=== PATIENT | male | born 1970 | race Caucasian/White ===

== ENCOUNTER 2018-02-13 17:04 | Observation (INO) ==
[2018-02-13] MEDS ORDERED: Ondansetron 4 MG/2 ML VIAL IVP ONE (17:15)
[2018-02-13] MEDS ORDERED: *HR* Propofol 200 MG/20 ML VIAL IVP ONE (17:48)
[2018-02-13] MEDS ORDERED: *HR* FentaNYL (PF) 100 MCG/2 ML VIAL ONE (17:48)
[2018-02-13] MEDS ORDERED: *HR* Succinylcholine 200 MG/10 ML VIAL IVP ONE (17:49)
[2018-02-13] MEDS ORDERED: Lidocaine -MPF 2% 2 ML VIAL ONE (17:50)
--- NOTE | 2018-02-13 17:52 | Anesthesia Evaluation PreOp ---
Date of Encounter: 02/13/18 Time of Encounter: 18:00 - Past History Planned Operation: EGD, Removal Food Bolus Cardiac History: Denies any Significant Hx Pulmonary History: Denies Any Significant HX STRATEGY PLANNING CONSULTANT History: Denies Any Significant HX Other Medical History: Diabetes Type II, Other (Bipolar, MRDD) Anesthesia History: No Prior Anesthetic Complications Alcohol Use: none Drug use: none Medications and Allergies Desvenlafaxine Succinate [Pristiq ER] 50 mg PO DAILY 04/25/17 [History] Fenofibrate Nanocrystallized [Tricor] 145 mg PO DAILY 04/25/17 [History] Insulin ASPART [Novolog Flexpen] 20 unit SQ TID 04/25/17 [History] Insulin Glargine,Hum.rec.anlog [Lantus Solostar] 60 unit SQ DAILY 04/25/17 [ History] Levothyroxine Sodium [Levoxyl] 25 mcg PO DAILY 04/25/17 [History] [place] Carbonate 300 mg PO TID 04/25/17 [History] Medroxyprogesterone Acetate [Depo-Provera] 150 mg IM QMONTH 04/25/17 [History] [place]-3 Acid Ethyl Esters [Lovaza] 2 gm PO BID 04/25/17 [History] Sertraline [Zoloft] 100 mg PO BID 04/25/17 [History] Trospium Chloride [Trospium Chloride] 20 mg PO HS 04/25/17 [History] clonazePAM [Klonopin] 0.5 mg PO TID 04/25/17 [History] Divalproex (12 HR) [Depakote (12 HR)] 1,000 mg PO HS 10/17/17 [History] Aripiprazole [Abilify] 15 mg PO QPM 11/20/17 [History] Aripiprazole [Abilify] 30 mg PO QAM 11/20/17 [History] Divalproex (12 HR) [Depakote (12 HR)] 500 mg PO QAM 11/20/17 [History] Metformin HCl [Glucophage] 1,000 mg PO BID 11/20/17 [History] Mupirocin [Bactroban Oint] 1 appl TP BID 11/20/17 [History] Nystatin Cream [Mycostatin Cream] 1 appl TP TID 11/20/17 [History] [place]-3/Dha/Epa/Fish Oil [Fish Oil 1,000 mg Softgel] 2 cap PO BID 11/20/17 [ History] traZODone [TraZODone] 50 mg PO HS 11/20/17 [History] 3 Allergy/AdvReac Type Severity Reaction Status Date / Time No Known Allergies Allergy Verified 06/25/17 12:05 - Meds/Allergy Pre-op Review Medications Reviewed: Yes Allergies Reviewed: Yes Beta Blockers on Current Med List: No Anesthesia Results - Labs O2 Sat Height 1.83 m Weight 72.575 kg O2 Sat by Pulse Oximetry 92 Vital Signs Temp Pulse Resp BP Pulse Ox 97.8 F 108 20 146/95 92 02/13/18 17:15 02/13/18 17:15 02/13/18 17:15 02/13/18 17:15 02/13/18 17:15 Laboratory Tests 10/30/17 11/14/17 17:32 11:10 Hgb 12.4 L D Hct 38.3 Plt Count 32 L D Sodium 136 Potassium 4.7 BUN 11 Creatinine 1.14 Anesthesia Exam Vital Signs/O2 Sat/Glucose, Most Current Temp Pulse Resp BP Pulse Ox 02/13/18 17:15 97.8 F 108 20 146/95 92 - HEENT Pupil (Motor): Pupils equal, EOMI Mallampati: II Teeth: Edentulous Oral Opening: Greater than 3 - STRATEGY PLANNING CONSULTANT LOC: Oriented STRATEGY PLANNING CONSULTANT Motor: Normal RUE, Normal LUE, Normal RLE, Normal LLE, Normal Face STRATEGY PLANNING CONSULTANT Sensory: Normal: RUE, LUE, RLE, LLE, Face - Cardiac Rhythm: Regular Murmur: None JVD: No Carotid Bruit: No - Pulmonary Breath Sounds: bilateral Clear Respiratory Effort: Symmetrical Anesthesia Assess/Plan ASA Score: 2, E Modified Gena Scale for Level of Consciousness: Cooperative, oriented, and tranquil Anesthetic Plan: General Monitoring Plan: Standard Monitors Recovery Plan: PACU (Discussed GA, agrees to proceed)
--- NOTE | 2018-02-13 17:53 | Emergency Department Note ---
Disposition Clinical Impression: Food impaction of esophagus Qualifiers: Encounter type: initial encounter Qualified Code(s): T18.128A - Food in esophagus causing other injury, initial encounter Disposition: Admitted As Inpatient Condition: Serious Time of Disposition: 18:03 General Adult HPI - General Stated complaint: Choking on Hotdog Time Seen by Provider: 02/13/18 17:10 Source: patient, EMS Mode of arrival: EMS Limitations: no limitations Nursing Notes Reviewed: Yes Vital Signs Reviewed: Yes - History of Present Illness HPI Narrative: Patient is a 47-year-old male that presents the emergency department with concern for possible food bolus. EMS stated that he was eating lunch this afternoon and was eating a hot dog and it felt like it got stuck in his throat. He states that he has a fullness in the anterior aspect of the neck just above the sternal notch. Patient states that he has been able to swallow his secretions. Patient denies any chest pain but says that he is not feeling well and feels like he is constantly spitting. Pain Scale: 5 - Related Data Home Medications Medication Instructions Recorded Confirmed Desvenlafaxine Succinate [Pristiq 50 mg PO DAILY 04/25/17 11/20/17 ER] Fenofibrate Nanocrystallized 145 mg PO DAILY 04/25/17 11/20/17 [Tricor] Insulin ASPART [Novolog Flexpen] 20 unit SQ TID 04/25/17 11/20/17 Insulin Glargine,Hum.rec.anlog 60 unit SQ DAILY 04/25/17 11/20/17 [Lantus Solostar] Levothyroxine Sodium [Levoxyl] 25 mcg PO DAILY 04/25/17 11/20/17 [place] Carbonate 300 mg PO TID 04/25/17 11/20/17 Medroxyprogesterone Acetate 150 mg IM QMONTH 04/25/17 11/20/17 [Depo-Provera] [place]-3 Acid Ethyl Esters [Lovaza] 2 gm PO BID 04/25/17 11/20/17 Sertraline [Zoloft] 100 mg PO BID 04/25/17 11/20/17 Trospium Chloride [Trospium 20 mg PO HS 04/25/17 11/20/17 Chloride] clonazePAM [Klonopin] 0.5 mg PO TID 04/25/17 11/20/17 Divalproex (12 HR) [Depakote (12 1,000 mg PO HS 10/17/17 11/20/17 HR)] Aripiprazole [Abilify] 15 mg PO QPM 11/20/17 11/20/17 Aripiprazole [Abilify] 30 mg PO QAM 11/20/17 11/20/17 Divalproex (12 HR) [Depakote (12 500 mg PO QAM 11/20/17 11/20/17 HR)] Metformin HCl [Glucophage] 1,000 mg PO BID 11/20/17 11/20/17 Mupirocin [Bactroban Oint] 1 appl TP BID 11/20/17 11/20/17 Nystatin Cream [Mycostatin Cream] 1 appl TP TID 11/20/17 11/20/17 [place]-3/Dha/Epa/Fish Oil [Fish Oil 2 cap PO BID 11/20/17 11/20/17 1,000 mg Softgel] traZODone [TraZODone] 50 mg PO HS 11/20/17 11/20/17 Allergies Allergy/AdvReac Type Severity Reaction Status Date / Time No Known Allergies Allergy Verified 06/25/17 12:05 All systems ED: reviewed and negative except as stated. Constitutional: Denies: fever Cardiovascular: Denies: chest pain Respiratory: Reports: cough, other ( increased secretions). Denies: dyspnea Gastrointestinal: Reports: abdominal pain. Denies: nausea, vomiting Past Medical History - Past Medical History Medical history: Reports: diabetes, GERD, hypertension, thyroid disease Surgical history: Reports: orthopedic, other, other Psychiatric history: Reports: anxiety, bipolar, depression, panic disorder, PTSD , schizophrenia, previous psychiatric hospitalization - Social History Smoking Status: Never smoker Smokeless Tobacco Status: No Alcohol use: Reports: none Drug use: Reports: none Physical Exam - General Limitations: no limitations General appearance: alert, anxious - Head Head exam: atraumatic, normocephalic - Eye Eye exam: Present: normal appearance, EOMI - ENT ENT exam: normal exam, normal oropharynx, mucous membranes moist, other (Unable to visualize any food bolus at this time.) - Neck Neck exam: Present: normal inspection, full ROM, trachea midline, other ( Patient appears to have increased secretions.) - Respiratory Respiratory exam: Present: normal lung sounds bilaterally. Absent: respiratory distress, wheezes - Cardiovascular Cardiovascular exam: Present: normal rhythm, tachycardia, normal heart sounds, + S1, +S2 - Abdominal Exam Abdominal exam: Present: soft, Non-Tender, normal bowel sounds - Neurological Exam Neurological exam: Present: alert, oriented X3 - Psychiatric Psychiatric exam: Present: normal affect, normal mood - Skin Skin exam: Present: warm, dry, intact Course Vital Signs Temperature 97.8 F 02/13/18 17:15 Pulse Rate 108 02/13/18 17:15 Respiratory Rate 20 02/13/18 17:15 Blood Pressure 146/95 02/13/18 17:15 O2 Sat by Pulse Oximetry 92 02/13/18 17:15 Temperature 99.1 F 02/13/18 19:14 Pulse Rate 98 02/13/18 19:14 Respiratory Rate 16 02/13/18 19:14 Blood Pressure 137/78 02/13/18 19:14 O2 Sat by Pulse Oximetry 100 02/13/18 19:14 Oxygen Delivery Oxygen Delivery Nasal Cannula Medical Decision Making - MDM Narrative Medical decision making narrative: Due the patient was sitting to the emergency Department likely food bolus and inability to swallow his own secretions Dr. Donnelly the on-call endoscopist was contacted shortly after the patient's arrival. Dr. Donnelly came to bedside at 1730 evaluate the patient and felt that the patient needs to be brought to the OR for endoscopy. This was an emergent procedure that needed to be performed. The consent form was signed as an emergent consent and the caregiver prior to the consent be informed was notified that this would need to be done and she was in agreement. The patient will be taken from the emergency department directly to the OR for removal of food bolus by Dr. Donnelly. Please see Dr. Donnelly' s note for endoscopy or surgical report and final disposition of the patient. Patient was discharged from the emergency department into the care of the endoscopy team and the OR staff. Attestation Statement - Attestation Attestation: I examined this patient and my medical decision-making was reviewed with the Resident Physician, Dr. Sandoval. I agree with the documented findings, disposition and treatment plan as described except to the extent set forth below. Patient is a 47-year-old white male with a history of developmental delay and bipolar disorder who is brought in by EMS for complaints of "feeling like something stuck in my throat". Patient was eating a hot dog this afternoon and feels like a piece of hot dog got stuck in his throat. EMS reports that bystanders there saw him coughing and choking and performed a Heimlich on him and he did cough up a few pieces of bread but still feels like there is something stuck in his throat and points to his sternal notch area. Patient is able to talk but is unable to swallow secretions. Due to his developmental delay its very hard to have him cooperate with spitting into a cup or coughing up the secretions. Secretions appear to be kind of pulling in the back of his throat. Patient is having no respiratory distress but does feel short of breath and room air sats were 92%. Patient has not had this happen to him in the past and is not had required any GI intervention. I agree with patient's physical exam findings as documented. Patient was very anxious. I personally evaluated the patient on arrival to the ED and we page Dr. Mcpherson immediately for endoscopy for foreign body removal. Dr. Mcpherson came to the emergency department right away and evaluated the patient and felt due to these pooling secretions that he would take him emergently to the endoscopy suite for foreign body removal. Anesthesia was down to see the patient, emergent procedure consent forms were signed and his caregiver was notified. Patient was trach indirectly to the OR from the ED and they will disposition the patient from the postop area.
--- NOTE | 2018-02-13 18:54 | General Surg History&Physical ---
Date of Encounter: 02/13/18 Time of Encounter: 17:30 Assessment and Plan (1) Airway compromise Current Visit: Yes Status: Acute The assessment and plan as outlined above was discussed with the patient and/or family members who expressed understanding and agreement. All questions were answered. The patient is deemed an emergency and taken directly to the operating room for intubation and esophageal disimpaction as well as evaluation for aspiration. (2) Food impaction of esophagus Current Visit: Yes Status: Acute The assessment and plan as outlined above was discussed with the patient and/or family members who expressed understanding and agreement. All questions were answered. The patient was deemed an emergency and taken directly to the operating room for intubation, evaluation of the airway, and upper endoscopy with food disimpaction Qualifiers: Encounter type: initial encounter Qualified Code(s): T18.128A - Food in esophagus causing other injury, initial encounter History of Present Illness Chief complaint: Foreign body esophagus HPI: Mr. Yang is a 47 year old male Who sustained a foreign body impaction of the esophagus. This affected his airway. At presentation to the emergency room his oxygen saturation was 80%. It was unclear where the level was of the food bolus but the patient was at risk for losing his airway. I deemed the clinical situation emergency and probably arrange to take patient to the operating room for intubation and upper endoscopy with disimpaction of food bolus. He would also have intraoperative bronchoscopy to rule out aspiration or airway foreign body. Emergency case taken directly to the operating room Past Med Surg Social Fam HX - Past Medical History Medical history: diabetes, GERD, hypertension, thyroid disease Psychiatric history: anxiety, bipolar, depression, panic disorder, PTSD, schizophrenia, previous psychiatric hospitalization - Past Surgical History Surgical History: orthopedic, other, other - Social History Smoking Status: Never smoker Smokeless Tobacco Status: No Alcohol use: none Drug use: none Medications and Allergies Desvenlafaxine Succinate [Pristiq ER] 50 mg PO DAILY 04/25/17 [History] Fenofibrate Nanocrystallized [Tricor] 145 mg PO DAILY 04/25/17 [History] Insulin ASPART [Novolog Flexpen] 20 unit SQ TID 04/25/17 [History] Insulin Glargine,Hum.rec.anlog [Lantus Solostar] 60 unit SQ DAILY 04/25/17 [ History] Levothyroxine Sodium [Levoxyl] 25 mcg PO DAILY 04/25/17 [History] [place] Carbonate 300 mg PO TID 04/25/17 [History] Medroxyprogesterone Acetate [Depo-Provera] 150 mg IM QMONTH 04/25/17 [History] [place]-3 Acid Ethyl Esters [Lovaza] 2 gm PO BID 04/25/17 [History] Sertraline [Zoloft] 100 mg PO BID 04/25/17 [History] Trospium Chloride [Trospium Chloride] 20 mg PO HS 04/25/17 [History] clonazePAM [Klonopin] 0.5 mg PO TID 04/25/17 [History] Divalproex (12 HR) [Depakote (12 HR)] 1,000 mg PO HS 10/17/17 [History] Aripiprazole [Abilify] 15 mg PO QPM 11/20/17 [History] Aripiprazole [Abilify] 30 mg PO QAM 11/20/17 [History] Divalproex (12 HR) [Depakote (12 HR)] 500 mg PO QAM 11/20/17 [History] Metformin HCl [Glucophage] 1,000 mg PO BID 11/20/17 [History] Mupirocin [Bactroban Oint] 1 appl TP BID 11/20/17 [History] Nystatin Cream [Mycostatin Cream] 1 appl TP TID 11/20/17 [History] [place]-3/Dha/Epa/Fish Oil [Fish Oil 1,000 mg Softgel] 2 cap PO BID 11/20/17 [ History] traZODone [TraZODone] 50 mg PO HS 11/20/17 [History] 3 Allergy/AdvReac Type Severity Reaction Status Date / Time No Known Allergies Allergy Verified 06/25/17 12:05 Review of Systems All systems PM: The remainder of the systems were reviewed and are negative General Surgery Exam Initial Vital Signs Temp Pulse Resp BP Pulse Ox 97.8 F 108 20 146/95 92 02/13/18 17:15 02/13/18 17:15 02/13/18 17:15 02/13/18 17:15 02/13/18 17:15 - General physical appearance other (The patient is short of breath and baking us to do something to save him) - Neck no masses, no bruits, trachea midline, no lymphadectomy, no venous distension - Respiratory normal expansion, normal respiratory effort, other (Rapid breathing with sonorous airway sounds) - Cardiovascular Cardiovascular exam: Present: RRR, no murmurs/rubs/gallops - Abdomen Abdomen general surgery: Present: bowel sounds present, soft, non tender - Neurologic Present: CN 2-12 grossly intact, normal coordination, normal sensation - Psychiatric Psychiatric general surgery: Present: other (The patient is fearful and agitated.) Results - Labs All other labs normal.
--- NOTE | 2018-02-13 19:22 | Anesthesia Evaluation Post Op ---
Date of Encounter: 02/13/18 Time of Encounter: 19:25 - Vital Signs Vital Signs: Vital Signs/O2 Sat/Glucose, Most Current Temp Pulse Resp BP Pulse Ox 02/13/18 19:14 99.1 F 98 16 137/78 100 02/13/18 19:04 98 16 125/85 98 02/13/18 18:54 101 16 124/85 100 02/13/18 18:44 97.7 F 108 16 134/87 96 02/13/18 18:05 97.8 F 108 20 146/95 92 02/13/18 17:15 97.8 F 108 20 146/95 92 - Lungs Lungs: Clear Ascult./Percussion - Airway Airway: Non-obstructed - Cardiovascular Regular Rate - Mental Status Mental Status: Alert & Oriented, Answers Appropriately - Pain Pain Scale: 0 - Nausea Vomiting Nausea Vomiting: Not Present - Hydration Hydration: Tolerates oral liquids - Discharge PostOp Status: Transfer Patient to floor
[2018-02-13] MEDS ORDERED: *HR* Dextrose 50 % in Water (Syg) 50 ML SYRINGE IVP PRN (19:28)
[2018-02-13] MEDS ORDERED: D5% in Water 1,000 ML IVC PRN (19:28)
[2018-02-13] MEDS ORDERED: *HR* OxyCODONE/APAP 5/325 TABLET PO PRN ×2 (19:28)
[2018-02-13] MEDS ORDERED: 0.9 % Sodium Chloride 1,000 ML IVC SCH (19:28)
[2018-02-13] MEDS ORDERED: Dextrose Gel 15 GM/37.5 ML TUBE PO PRN ×2 (19:28)
[2018-02-13] MEDS ORDERED: *HR* Metoprolol 5 MG/5 ML VIAL IVP PRN (19:28)
[2018-02-13] MEDS: clonazePAM 0.5 MG TABLET PO SCH (20:13)
[2018-02-13] MEDS: Lithium Carbonate 300 MG CAPSULE PO SCH (20:14)
[2018-02-13] MEDS: *HR* Metformin 500 MG TABLET PO SCH (20:26)
[2018-02-13] MEDS ORDERED: traZODone 50 MG TABLET PO SCH (21:00)
[2018-02-13] MEDS ORDERED: Divalproex (12 HR) 500 MG TABLET PO SCH (21:00)
--- NOTE | 2018-02-14 07:29 | Discharge Summary ---
<Abraham Metzger - Last Filed: 02/14/18 07:26> Date of Encounter: 02/14/18 Time of Encounter: 06:45 - Discharge Diagnosis (1) Food impaction of esophagus Priority: Primary Status: Acute Comments: Compressive compromise of upper airway; dislodged with EGD and treated with subsequent balloon dilatation. Qualifiers: Encounter type: initial encounter Qualified Code(s): T18.128A - Food in esophagus causing other injury, initial encounter (2) Airway compromise Priority: Primary Status: Acute Comments: Symptomatically improved upon resolution of primary cause. General Surgery Exam Initial Vital Signs Temp Pulse Resp BP Pulse Ox 97.8 F 108 20 146/95 92 02/13/18 17:15 02/13/18 17:15 02/13/18 17:15 02/13/18 17:15 02/13/18 17:15 VITAL SIGNS: Reviewed. See [facility] GENERAL: no acute distress, comfortably supine, answers questions appropriately HEENT: normocephalic, pupils equal, oropharynx pink moist, no audible strider CV: regular rate and rhythm, peripheral pulses symmetrical and 2+ RESPIRATORY: CTAB without wheezes, rales, or rhonchi; no strider heard ABD: soft, non-tender, no rebound/guarding/rigidity, no peritoneal signs EXTREMITY: grossly normal motor function, no pedal edema, peripheral pulses 2+ b /l NEUROLOGIC EXAM: AOx3, obeys commands, no speech deficits. PSYCHIATRIC: normal mood and affect SKIN: no gross lesions, rashes, or skin changes - Hospital Course Hospital course: Mr. Yang is a 47 year old male presented to the emergency department after getting large piece of food stuck in his throat at about the level of his sternal notch. Patient was in distress at initial contact worried that he would not be able to breathe adequately. Considered an emergent airway compromise, taken to the OR, intubated, and dis-impacted with EGD scope. Two stenotic portions of the esophagus were successfully treated with balloon dilatation, subsequently demonstrating continued patency. Morning after EGD, patient denies any difficulty with breathing. Patient has some soreness in his throat most likely due to the endotracheal tube. No other complaints at this time. Symptomatic return precautions reviewed with patient. Same return precautions as well as educational handouts provided to patients prior to discharge. Patient is discharged and good and baseline condition. No new medications or follow-up appointments necessary from surgical standpoint. - Time Spent with Patient Total time spent providing and/or coordinating discharge services: - Discharge Medications Home Medications: Desvenlafaxine Succinate [Pristiq ER] 50 mg PO DAILY 04/25/17 [History] Fenofibrate Nanocrystallized [Tricor] 145 mg PO DAILY 04/25/17 [History] Levothyroxine Sodium [Levoxyl] 25 mcg PO DAILY 04/25/17 [History] [place] Carbonate 300 mg PO TID 04/25/17 [History] Medroxyprogesterone Acetate [Depo-Provera] 150 mg IM QMONTH 04/25/17 [History] [place]-3 Acid Ethyl Esters [Lovaza] 2 gm PO BID 04/25/17 [History] Sertraline [Zoloft] 100 mg PO DAILY 04/25/17 [History] Trospium Chloride [Trospium Chloride] 20 mg PO HS 04/25/17 [History] Divalproex (12 HR) [Depakote (12 HR)] 1,000 mg PO HS 10/17/17 [History] Aripiprazole [Abilify] 15 mg PO QPM 11/20/17 [History] Aripiprazole [Abilify] 30 mg PO QAM 11/20/17 [History] Divalproex (12 HR) [Depakote (12 HR)] 500 mg PO QAM 11/20/17 [History] Metformin HCl [Glucophage] 1,000 mg PO BID 11/20/17 [History] Mupirocin [Bactroban Oint] 1 appl TP BID 11/20/17 [History] Nystatin Cream [Mycostatin Cream] 1 appl TP TID 11/20/17 [History] traZODone [TraZODone] 50 mg PO HS 11/20/17 [History] Insulin DETEMIR [Levemir Flextouch] 40 unit SQ QPM 02/13/18 [History] Loxapine Succinate [Loxapine] 50 mg PO BID 02/13/18 [History] cloNIDine HCl [CloNIDine HCl] 0.1 mg PO HS 02/13/18 [History] clonazePAM [Klonopin] 1 mg PO TID 02/13/18 [History] Allergies/Adverse Reactions: 3 Allergy/AdvReac Type Severity Reaction Status Date / Time No Known Allergies Allergy Verified 06/25/17 12:05 Date of admission: 02/13/18 18:31 Primary care physician: Stanton Lock MD Discharging clinician: Abraham Metzger Anticipated date of discharge: 02/14/18 - Patient Status Disposition: Home, Self-Care Condition: Good Overall status at discharge: patient is back to baseline - Discharge Instructions Instructions: Esophageal Foreign Body (GEN), Upper Gastrointestinal Endoscopy ( DC) Follow Up With: Stanton Lock MD [Primary Care Provider] - Additional Instructions: Please review all discharge educational handouts. You may return to your usual diet Caution is advised when eating; recommend more thoroughly chewing food prior to swallowing. Return to the emergency department if similar incidents occur. Call your doctor or return to the emergency department for further evaluation especially if you have any of the following symptoms: inability to swallow, associated drooling, regurgitation, intense abdominal pain, inability to take a deep breath, inability to pass gas, or inability to have bowel movements. Other return precautions outlined in your educational handouts. Call your PCP for other concerns if any arise. - Diet and Activity Activity: resume usual activities as tolerated Diet: advance to your usual diet <Byron Donnelly - Last Filed: 02/14/18 15:26> Date of Encounter: 02/14/18 - Discharge Diagnosis (1) Airway compromise Status: Acute (2) Food impaction of esophagus Status: Acute Qualifiers: Encounter type: initial encounter Qualified Code(s): T18.128A - Food in esophagus causing other injury, initial encounter General Surgery Exam Initial Vital Signs Temp Pulse Resp BP Pulse Ox 97.8 F 108 20 146/95 92 02/13/18 17:15 02/13/18 17:15 02/13/18 17:15 02/13/18 17:15 02/13/18 17:15 - Hospital Course Hospital course: Mr. Yang is a 47 year old male - Time Spent with Patient Total time spent providing and/or coordinating discharge services: Date of admission: 02/13/18 18:31 Primary care physician: Stanton Lock MD Labs on day of discharge: Labs from last 24 hours 02/14/18 07:47 POC Glucose 108 H - Attending Attestation I examined this patient and my medical decision-making was reviewed with the Resident Physician. I agree with the documented findings, disposition and treatment plan as described except to the extent set forth below. The patient is seen and evaluated on morning rounds with the resident. He is swallowing normally and ready for discharge. There is no sign of aspiration pneumonia. Byron Donnelly MD FACS
[2018-02-14] MEDS ORDERED: Insulin LISPRO 300 UNITS/3 ML VIAL SQ SCH (07:30)
[2018-02-14 07:51] VITALS: BP 126/79
[2018-02-14] MEDS: Lithium Carbonate 300 MG CAPSULE PO SCH (08:06)
[2018-02-14] MEDS: *HR* Metformin 500 MG TABLET PO SCH (08:06)
[2018-02-14] MEDS: clonazePAM 0.5 MG TABLET PO SCH (08:06)
[2018-02-14] MEDS ORDERED: Pantoprazole 40 MG VIAL IVP SCH (09:00)
[2018-02-14] MEDS ORDERED: ARIPiprazole 10 MG TABLET PO SCH ×2 (09:00→18:00)
[2018-02-14] MEDS ORDERED: Divalproex (12 HR) 500 MG TABLET PO SCH (09:00)
[2018-02-14] MEDS ORDERED: Venlafaxine XR (24 HR) 75 MG CAP.ER.24H PO SCH (09:00)
== END 2018-02-14 10:00 | disposition home or self-care (01) ==
LOC: EMEROO 17:04 → 3ANU 17:04 → EMEROO 18:24 → 3ANU 18:33
PROVIDERS: ADMIT Surgery; ATTEND Surgery
PROC: ENDOEFB (2018-02-13 17:45)

== ENCOUNTER 2018-05-11 11:41 | Inpatient (IN) ==
[2018-05-11 12:33] LABS: Bilirubin,Urine Negative (Negative); Blood,Urine Moderate (Negative); Clarity,Urine Turbid (Clear); Color,Urine Yellow (Yellow); Glucose,Urine (UA) >=1000 mg/dL (Normal); Ketones,Urine Negative (Negative); Leukocyte Esterase,Urine Large (Negative); Nitrite,Urine Positive (Negative); Protein,Urine 100 mg/dL (Neg-Trace); Specific Gravity,Urine 1.025 (1.010-1.025); Urobilinogen,Urine Normal (Normal)
[2018-05-11 12:35] LABS: Bacteria,Urine Few per hpf (None-Few); RBC,Urine 30-50 per hpf (0-3); Squamous Epithelial Cell,Urine Few per lpf (None-Few); WBC,Urine TNTC per hpf (0-3)
[2018-05-11] MEDS: 0.9 % Sodium Chloride 1,000 ML IVC SCH ×3 (12:37→14:35)
[2018-05-11 12:43] LABS: Basophils % 0.2 %; Eosinophils # 0.2 K/mcL (0.0-0.6); Eosinophils % 1.8 %; Hematocrit 32.1 % (37.5-50.1); Immature Granulocytes % 0.5 % (0-4); Lymphocytes # 2.1 K/mcL (0.6-4.6); Lymphocytes % 25.4 %; Mean Corpuscular Hemoglobin 34.2 pg (28.0-33.3); Mean Corpuscular Volume 103.5 fL (83.0-100.0); Mean Platelet Volume 10.1 fL (9.4-12.4); Monocytes # 0.5 K/mcL (0.0-1.3); Monocytes % 5.6 %; Neutrophils # 5.6 K/mcL (1.6-8.9); Platelet Count 228 K/mcL (140-400); Red Cell Distribution Width 14.5 % (11.5-14.5); Segmented Neutrophils % 66.5 %
[2018-05-11 12:48] LABS: Hemoglobin 10.6 g/dL (12.9-16.9); INR 1.5; Prothrombin Time 17.2 Seconds (9.4-12.1)
[2018-05-11] MEDS ORDERED: Cefepime HCl 2,000 MG in Water for inj. (sterile) 20 ML 20 ML IVP ONE (12:59)
[2018-05-11] MEDS ORDERED: Levofloxacin 750 MG/150 ML 750 MG/150 ML BAG IVPB ONE (12:59)
[2018-05-11 13:19] LABS: Alanine Aminotransferase 10 Units/L (7-52); Albumin 3.2 g/dL (3.5-5.7); Alkaline Phosphatase 50 Units/L (34-104); Aspartate Amino Transferase 23 Units/L (13-39); BUN/Creatinine Ratio 14 (6-26); Bilirubin,Direct 0.1 mg/dL (0.0-0.2); Bilirubin,Indirect 0.6 mg/dL (0.0-1.2); Bilirubin,Total 0.7 mg/dL (0.3-1.0); Blood Urea Nitrogen 11 mg/dL (6-20); Calcium 9.1 mg/dL (8.6-10.3); Carbon Dioxide 16 mEq/L (23-29); Chloride 108 mEq/L (98-107); Globulin 3.1 g/dL (2.4-3.5); Glucose 278 mg/dL (70-105); Osmolality,Calculated 283 (280-300); Phosphorous 2.8 mg/dL (2.7-4.5); Potassium 4.5 mEq/L (3.5-5.1); Sodium 132 mEq/L (136-145); Total Protein 6.3 g/dL (6.4-8.9); Troponin I < 0.03 ng/mL (< 0.04); eGFR For Non-African Americans > 60 (> 60)
[2018-05-11 13:43] LABS: ABG Base Excess -8 mEq/L (-2 to 3); ABG HCO3 16 mEq/L (21-27); ABG Oxygen Saturation 98 % (95-98); ABG PCO2 24 mmHg (35-45); ABG PH 7.42 pH Units (7.32-7.45); ABG PO2 97 mmHg (85-104); ABG TCO2 17 mEq/L (20-26)
--- NOTE | 2018-05-11 14:07 | Emergency Department Note ---
Disposition Clinical Impression: Sepsis Qualifiers: Sepsis type: sepsis due to unspecified organism Qualified Code(s): A41.9 - Sepsis, unspecified organism UTI (urinary tract infection) Qualifiers: Urinary tract infection type: acute cystitis Hematuria presence: without hematuria Qualified Code(s): N30.00 - Acute cystitis without hematuria Disposition: Admitted As Inpatient Condition: Fair Time of Disposition: 14:20 General Adult HPI - General Chief complaint: ED Shortness of Breath/Dyspnea Stated complaint: BARBARA Time Seen by Provider: 05/11/18 11:50 Source: patient, other Mode of arrival: EMS Limitations: physical limitation Nursing Notes Reviewed: Yes Vital Signs Reviewed: Yes - History of Present Illness HPI Narrative: Mr. Yang is a 47 year old male with history of UTI, schizophrenia, diabetes DM , HTN, and seizure disorder, MRDD and lives lives in his home with the assistance of a GRADES 1 THRU 5 TEACHER. Home health a reported subjective fevers and shortness of breath. Apparently patient's Esteves catheter tubing began to have white sediment in the past 2 days. He also has a left medial heel ulcer that has been caring for. Patient verbalizes no abdominal pain or discomfort and no complaints with Esteves catheter. GRADES 1 THRU 5 TEACHER concerned for aspiration as he has trouble swallowing. Pain Scale: 0 - Related Data Home Medications Medication Instructions Recorded Confirmed Desvenlafaxine Succinate [Pristiq] 50 mg PO DAILY 03/30/18 05/11/18 Fenofibrate Nanocrystallized 145 mg PO DAILY 03/30/18 05/11/18 [Tricor] Insulin DETEMIR [Levemir] 20 units SQ HS 03/30/18 05/11/18 Levothyroxine [Synthroid] 25 mcg PO DAILY 03/30/18 05/11/18 [place] Carbonate 300 mg PO TID 03/30/18 05/11/18 Loxapine Succinate [Loxapine] 50 mg PO BID 03/30/18 05/11/18 Medroxyprogesterone Acetate 201 mg IM Q4W 03/30/18 05/11/18 [Depo-Provera] Metformin HCl [Glucophage] 1,000 mg PO BID 03/30/18 05/11/18 Sertraline [Zoloft] 100 mg PO DAILY 03/30/18 05/11/18 Trospium Chloride 20 mg PO DAILY 03/30/18 05/11/18 cloNIDine HCl [CloNIDine HCl] 0.1 mg PO HS 03/30/18 05/11/18 clonazePAM [Klonopin] 1 mg PO TID 03/30/18 05/11/18 Divalproex Sodium [Depakote 250 mg PO BID 05/11/18 05/11/18 Sprinkle] Insulin LISPRO [Humalog Kwikpen 0 unit SQ TID PRN 05/11/18 05/11/18 U-100] Polyethylene Glycol 3350 [MiraLAX 1 scoop PO DAILY 05/11/18 05/11/18 Powder Bulk 17.9 Oz] Allergies Allergy/AdvReac Type Severity Reaction Status Date / Time No Known Allergies Allergy Verified 05/11/18 11:49 Constitutional: Reports: fever, weakness, weight change (decreased 35 pounds in the ). Denies: chills Cardiovascular: Denies: chest pain, palpitations Respiratory: Reports: dyspnea. Denies: wheezes Gastrointestinal: Denies: abdominal pain, nausea, vomiting, diarrhea, hematemesis, melena, hematochezia Genitourinary: Reports: other (change in urine color in esteves) Past Medical History - Past Medical History Medical history: Reports: diabetes, GERD, hypertension, seizures, thyroid disease, other Surgical history: Reports: orthopedic, other, other Psychiatric history: Reports: anxiety, bipolar, depression, panic disorder, PTSD , schizophrenia, previous psychiatric hospitalization - Social History Smoking Status: Never smoker Smokeless Tobacco Status: No Alcohol use: Reports: none Drug use: Reports: none Physical Exam - General Limitations: altered mental status General appearance: alert, lethargic, cachectic - Head Head exam: atraumatic, normocephalic, normal inspection - Eye Eye exam: Present: normal appearance, PERRL, EOMI. Absent: nystagmus - ENT ENT exam: normal exam, normal oropharynx, mucous membranes dry (and pale) - Neck Neck exam: Present: normal inspection, full ROM, trachea midline - Chest Chest inspection: Present: normal inspection, symmetric chest wall rise - Respiratory Respiratory exam: Present: normal lung sounds bilaterally - Cardiovascular Cardiovascular exam: Present: regular rate, normal rhythm, normal heart sounds - Abdominal Exam Abdominal exam: Present: soft, tenderness. Absent: distention, guarding, rebound, rigidity Abdominal tenderness: Present: diffuse - Rectal Exam Human Resources Trainee present during exam: Yes (Pt TILE AND MARBLE INSTALLER) Rectal exam: Present: normal inspection, normal rectal tone, hemorrhoids ( external, non-bleeding, non-erythemetous), normal prostate. Absent: mass, tenderness - Extremities Exam Extremities exam: Present: normal capillary refill. Absent: pedal edema - Expanded Lower Extremity Exam Foot/toe exam: Present: other (ulcer on medial left heel that is non- erythemetous, no purulent drainage or bleeding.) Neurovascular/Tendon exam: Absent: motor deficit, sensory deficit, tendon deficit - Neurological Exam Neurological exam: Present: alert, CN II-XII intact - Expanded Neurological Exam Patient oriented to: Present: person, place. Absent: time Speech: Present: fluid speech Coma Scale Eye Opening: Spontaneous Coma Scale Motor Response: Obeys Commands Coma Scale Verbal Response: Confused Coma Scale Total: 14 - Psychiatric Psychiatric exam: Present: flat affect - Skin Skin exam: Present: warm, dry, intact, pallor Course Course Narrative: Mr. Yang is a 47 year old male with history of UTI, schizophrenia, diabetes DM , HTN, and seizure disorder, MRDD and lives lives in his home with the assistance of a GRADES 1 THRU 5 TEACHER. Home health a reported subjective fevers and shortness of breath. Apparently patient's Esteves catheter tubing began to have white sediment in the past 2 days. He also has a left medial heel ulcer that has been caring for. Patient verbalizes no abdominal pain or discomfort and no complaints with Esteves catheter. GRADES 1 THRU 5 TEACHER concerned for aspiration as he has trouble swallowing. On exam pt is drowsy, lethargic, mildly confused with cloudy urine with white sediment in esteves. Pt is pale. Concern for sepsis, will fluid bolus and initiate sepsis workup, concern for urosepsis. - Reevaluation(s) Reevaluation #1: Pt doing well after fluid bolus. Discussed admission with pt, rectal exam performed and hemocult sent to lab. Pt stable for admission. Time: 14:00 - Consultations Consultation #1: Discussed the case with Dr. Reddy with the hospitalist service who has accepted the pt for admission. He would like vanc started since he has grown MRSA in the past, order placed. Time: 14:17 Vital Signs Temperature 97.4 F L 05/11/18 11:50 Pulse Rate 107 05/11/18 11:50 Respiratory Rate 20 05/11/18 11:50 Blood Pressure 113/80 05/11/18 11:50 O2 Sat by Pulse Oximetry 98 05/11/18 11:50 Temperature 98.3 F 05/11/18 19:27 Pulse Rate 80 05/11/18 19:27 Respiratory Rate 15 05/11/18 19:27 Blood Pressure 149/87 05/11/18 16:07 O2 Sat by Pulse Oximetry 99 05/11/18 19:27 Oxygen Delivery Oxygen Delivery Room Air Medical Decision Making - MDM Narrative Medical decision making narrative: Pt presents with worsening lethargy, confusion, urine changes. Pt appears lethargic, drowsy, pale. Labs show decreased hgb, UTI. Will admit for IV abx, concern for urosepsis. - Medical Records Medical records reviewed: Yes I reviewed the patient's medical records. - Lab Data Lab results reviewed: Yes I reviewed the patient's lab results. Result diagrams: 05/11/18 12:11 05/11/18 12:11 Lab Results 05/11/18 05/11/18 05/11/18 Range/Units 12:07 12:11 12:11 WBC 8.4 (4.3-11.1) K/mcL RBC 3.10 L (4.19-5.50) M/mcL Hgb 10.6 L D (12.9-16.9) g/dL Hct 32.1 L (37.5-50.1) % MCV 103.5 H (83.0-100.0) fL MCH 34.2 H (28.0-33.3) pg MCHC 33.0 (31.6-35.5) g/dL RDW 14.5 (11.5-14.5) % Plt Count 228 (140-400) K/mcL MPV 10.1 (9.4-12.4) fL Immature Gran % 0.5 (0-4) % Seg Neutrophils % 66.5 % Lymphocytes % 25.4 % Monocytes % 5.6 % Eosinophils % 1.8 % Basophils % 0.2 % Neutrophils # 5.6 (1.6-8.9) K/mcL Lymphocytes # 2.1 (0.6-4.6) K/mcL Monocytes # 0.5 (0.0-1.3) K/mcL Eosinophils # 0.2 (0.0-0.6) K/mcL Basophils # 0.0 (0.0-0.2) K/mcL PT 17.2 H (9.4-12.1) Seconds INR 1.5 APTT 32.0 (26.0-36.0) Seconds Sample Site ABG pH (7.32-7.45) pH Units ABG pCO2 (35-45) mmHg ABG pO2 (85-104) mmHg ABG HCO3 (21-27) mEq/L ABG Total CO2 (20-26) mEq/L ABG O2 Saturation (95-98) % ABG Base Excess (-2 to 3) mEq/L O2 Delivery Device Inspired O2 (1-15=lpm [id number]=%) Sodium (136-145) mEq/L Potassium (3.5-5.1) mEq/L Chloride (98-107) mEq/L Carbon Dioxide (23-29) mEq/L BUN (6-20) mg/dL Creatinine (0.70-1.30) mg/dL Est GFR ( Amer) (> 60) Est GFR (Non-Af Amer) (> 60) BUN/Creatinine Ratio (6-26) Glucose (70-105) mg/dL Calculated Osmolality (280-300) Lactic Acid (0.5-2.2) mmol/L Calcium (8.6-10.3) mg/dL Phosphorus (2.7-4.5) mg/dL Magnesium (1.6-2.6) mg/dL Total Bilirubin (0.3-1.0) mg/dL Direct Bilirubin (0.0-0.2) mg/dL Indirect Bilirubin (0.0-1.2) mg/dL AST (13-39) Units/L ALT (7-52) Units/L Alkaline Phosphatase (34-104) Units/L Troponin I (< 0.04) ng/mL Serum Total Protein (6.4-8.9) g/dL Albumin (3.5-5.7) g/dL Globulin (2.4-3.5) g/dL Albumin/Globulin Ratio (1.1-2.2) Urine Color Yellow (Yellow) Urine Clarity Turbid A (Clear) Urine pH 6.0 (5.0-8.0) pH Units Ur Specific [place] 1.025 (1.010-1.025) Urine Protein 100 H (Neg-Trace) mg/dL Urine Glucose (UA) >=1000 H (Normal) mg/dL Urine Ketones Negative (Negative) mg/dL Urine Blood Moderate H (Negative) Urine Nitrite Positive A (Negative) Urine Bilirubin Negative (Negative) Urine Urobilinogen Normal (Normal) mg/dL Ur Leukocyte Esterase Large H (Negative) Urine Microscopic RBC 30-50 H (0-3) per hpf Urine Microscopic WBC TNTC H (0-3) per hpf Ur Squamous Epith Cells Few (None-Few) per lpf Urine Bacteria Few (None-Few) per hpf Ur Culture Indicated? YES A (NO) 05/11/18 05/11/18 05/11/18 Range/Units 12:11 12:11 13:38 WBC (4.3-11.1) K/mcL RBC (4.19-5.50) M/mcL Hgb (12.9-16.9) g/dL Hct (37.5-50.1) % MCV (83.0-100.0) fL MCH (28.0-33.3) pg MCHC (31.6-35.5) g/dL RDW (11.5-14.5) % Plt Count (140-400) K/mcL MPV (9.4-12.4) fL Immature Gran % (0-4) % Seg Neutrophils % % Lymphocytes % % Monocytes % % Eosinophils % % Basophils % % Neutrophils # (1.6-8.9) K/mcL Lymphocytes # (0.6-4.6) K/mcL Monocytes # (0.0-1.3) K/mcL Eosinophils # (0.0-0.6) K/mcL Basophils # (0.0-0.2) K/mcL PT (9.4-12.1) Seconds INR APTT (26.0-36.0) Seconds Sample Site L Radial ABG pH 7.42 (7.32-7.45) pH Units ABG pCO2 24 L (35-45) mmHg ABG pO2 97 (85-104) mmHg ABG HCO3 16 L (21-27) mEq/L ABG Total CO2 17 L (20-26) mEq/L ABG O2 Saturation 98 (95-98) % ABG Base Excess -8 L (-2 to 3) mEq/L O2 Delivery Device Room Air Inspired O2 21.0 (1-15=lpm [id number]=%) Sodium 132 L (136-145) mEq/L Potassium 4.5 (3.5-5.1) mEq/L Chloride 108 H (98-107) mEq/L Carbon Dioxide 16 L (23-29) mEq/L BUN 11 (6-20) mg/dL Creatinine 0.78 (0.70-1.30) mg/dL Est GFR ( Amer) > 60 (> 60) Est GFR (Non-Af Amer) > 60 (> 60) BUN/Creatinine Ratio 14 (6-26) Glucose 278 H (70-105) mg/dL Calculated Osmolality 283 (280-300) Lactic Acid 2.6 H (0.5-2.2) mmol/L Calcium 9.1 (8.6-10.3) mg/dL Phosphorus 2.8 (2.7-4.5) mg/dL Magnesium 2.0 (1.6-2.6) mg/dL Total Bilirubin 0.7 (0.3-1.0) mg/dL Direct Bilirubin 0.1 (0.0-0.2) mg/dL Indirect Bilirubin 0.6 (0.0-1.2) mg/dL AST 23 (13-39) Units/L ALT 10 (7-52) Units/L Alkaline Phosphatase 50 (34-104) Units/L Troponin I < 0.03 (< 0.04) ng/mL Serum Total Protein 6.3 L (6.4-8.9) g/dL Albumin 3.2 L (3.5-5.7) g/dL Globulin 3.1 (2.4-3.5) g/dL Albumin/Globulin Ratio 1.0 L (1.1-2.2) Urine Color (Yellow) Urine Clarity (Clear) Urine pH (5.0-8.0) pH Units Ur Specific [place] (1.010-1.025) Urine Protein (Neg-Trace) mg/dL Urine Glucose (UA) (Normal) mg/dL Urine Ketones (Negative) mg/dL Urine Blood (Negative) Urine Nitrite (Negative) Urine Bilirubin (Negative) Urine Urobilinogen (Normal) mg/dL Ur Leukocyte Esterase (Negative) Urine Microscopic RBC (0-3) per hpf Urine Microscopic WBC (0-3) per hpf Ur Squamous Epith Cells (None-Few) per lpf Urine Bacteria (None-Few) per hpf Ur Culture Indicated? (NO) - Radiology Data Radiology results reviewed: Yes I reviewed the patient's radiology results. Chest X-Ray 05/11/18 12:19 IMPRESSION: Streaky opacity in the left lung base with elevation left hemidiaphragm, unchanged. D/ / Cecelia Prater MD / Cecelia Prater MD Interpreting Provider: Cecelia Prater MD Critical Care Time Critical Care Time: Yes Total Critical Care Time: 30 Attestation: Critical care time 30 minutes managing patient's sepsis Attestation Statement - Attestation Attestation: Patient was seen with resident physician. I reviewed the history, physical, assessment and plan, and agree with the findings. I also personally evaluated this patient and had [id number] time with this patient. 47-year-old male presents emergency Department with decreased mental functioning , increasing weight loss decreased by mouth and other indicators that he was failing to perform appropriate daily activities. Patient is MR and has an indwelling Esteves catheter. Caregiver states that she states thinks he seems more short of breath as well. There is some concern for aspiration pneumonia. White sediment can be seen in the urine bag. Unclear on fevers or chills at this point. Also unclear and shortness of breath or chest pain. Review systems as above remainder reviewed to the best of our ability. ED course initial vital signs patient was minimally hypotensive this responded well to IV fluids. He was afebrile. ENT is unremarkable. Heart regular rhythm and rate. Lungs were clear. Abdomen is soft nontender. Extremities were unremarkable. Neurologically he is alert follows all commands moves all extremities. Skin no obvious rashes. Psych occult to evaluate. ED course workup essentially revealed urosepsis. His urine was a clear source of potential infection. His x-ray the chest was largely unremarkable. White blood cell count was normal. Patient was started on aggressive IV antibiotic therapy. He also responded well to IV hydration. I think a lot of his hypotension and symptoms of mental decline related to the fact that he has not been eating or drinking. There is really no indication for head CT scan as he easily answered questions that we asked moved all extremities. Patient actually continually improved throughout his stay in the emergency department especially with the IV hydration. We discussed the case and the hospitalist service agreed to accept the patient for admission to the hospital. Critical care time for this patient was 30 minutes. Agree with resident physician assessment and plan.
[2018-05-11] MEDS ORDERED: Naloxone 0.4 MG/ML INJ IVP PRN (14:54)
[2018-05-11] MEDS ORDERED: D5% in Water 1,000 ML IVC PRN (15:04)
[2018-05-11] MEDS ORDERED: *HR* Dextrose 50 % in Water (Syg) 50 ML SYRINGE IVP PRN (15:04)
[2018-05-11] MEDS ORDERED: Dextrose Gel 15 GM/37.5 ML TUBE PO PRN ×2 (15:04)
--- NOTE | 2018-05-11 15:14 | Internal Med History&Physical ---
Date of Encounter: 05/11/18 Time of Encounter: 15:13 Internal Medicine - H&P: HPI Chief complaint: SOB and fever Admitted From: Home (With home health aide) Plans for Post Hospital Care: Home History of present illness: Mr. Yang is a 47 year old male with history of UTI, schizophrenia, diabetes DM , HTN, and seizure disorder. The patient has history of cognitive deficits and lives in his home with the assistance of a MAINSPRING STRIP INSPECTOR. MAINSPRING STRIP INSPECTOR supplied some medical and social information. Home health a reported subjective fevers and shortness of breath. Apparently patient's Esteves catheter tubing began to have white sediment in the past 2 days. Patient verbalizes no abdominal pain or discomfort and no complaints with Esteves catheter. Patient with recent UTIs on 04/18/2018 which cultured MRSA, 03/30/2018 culture Klebsiella pneumoniae and 05/2018 with Enterococcus faecalis. UA received in the ED which showed moderate blood, positive for nitrites, large leukocyte esterase, WBCs TNTC, and RBCs 30-50. Patient was started on cefepime, Levaquin, and vancomycin due to last urine culture of MRSA. Patient also had recent urine cultures of klebsiella pneumonia and enteroccocus faecalis. Apparently patient was short of breath on arrival, O2 saturation was 100% on room air. Lactic acid is 2.6, serum white blood cell count is 8.4. Patient has hx of seizure precautions and will have seizure precautions. The patient is afebrile. Patient likely has SIRS as a result of his UTI. IV fluid boluses given in the ED, kidney function stable, creat is 0.78, bun is 11. NA is 132. Will give 1 additional bag of IVF @ 75 ml/hr. I have discussed the case with Dr. Reddy. Past Med Surg Social Fam HX - Past Medical History Medical history: diabetes, GERD, hypertension, seizures, thyroid disease, other Additional medical history: scoliosis, MRDD, type II diabetic, hypothyroidism Psychiatric history: anxiety, bipolar, depression, panic disorder, PTSD, schizophrenia, previous psychiatric hospitalization - Past Surgical History Surgical History: orthopedic, other, other Additional surgical history: PE TUBES. "dilation of esophagus" - Social History Smoking Status: Never smoker Smokeless Tobacco Status: No Alcohol use: none Drug use: none Internal Medicine - H&P: Meds Desvenlafaxine Succinate [Pristiq] 50 mg PO DAILY 03/30/18 [History] Fenofibrate Nanocrystallized [Tricor] 145 mg PO DAILY 03/30/18 [History] Insulin DETEMIR [Levemir] 20 units SQ HS 03/30/18 [History] Levothyroxine [Synthroid] 25 mcg PO DAILY 03/30/18 [History] [place] Carbonate 300 mg PO TID 03/30/18 [History] Loxapine Succinate [Loxapine] 50 mg PO BID 03/30/18 [History] Medroxyprogesterone Acetate [Depo-Provera] 201 mg IM Q4W 03/30/18 [History] Metformin HCl [Glucophage] 1,000 mg PO BID 03/30/18 [History] Sertraline [Zoloft] 100 mg PO DAILY 03/30/18 [History] Trospium Chloride 20 mg PO DAILY 03/30/18 [History] cloNIDine HCl [CloNIDine HCl] 0.1 mg PO HS 03/30/18 [History] clonazePAM [Klonopin] 1 mg PO TID 03/30/18 [History] Divalproex Sodium [Depakote Sprinkle] 250 mg PO BID 05/11/18 [History] Insulin LISPRO [Humalog Kwikpen U-100] 0 unit SQ TID PRN 05/11/18 [History] Polyethylene Glycol 3350 [MiraLAX Powder Bulk 17.9 Oz] 1 scoop PO DAILY [History] 3 Allergy/AdvReac Type Severity Reaction Status Date / Time No Known Allergies Allergy Verified 05/11/18 11:49 All Systems PM: A 10-system review of systems was performed and is negative for pertinent findings except as documented above in the HPI. - Constitutional Constitutional: fever(s), no chills, no night sweats - EENT Eyes: no change in vision, no discharge, no pain, no photophobia Ears: no ear discharge, no ear pain, no tinnitus Nose, mouth and throat: no dysphagia, no nasal discharge, no neck pain, no sore throat - Cardiovascular Cardiovascular ROS IM: dyspnea, no chest pain, no diaphoresis, no lightheadedness, no palpitations, no syncope - Respiratory Respiratory: no cough, no dyspnea, no wheezing, no excessive phlegm production - Gastrointestinal Gastrointestinal: no abdominal pain, no diarrhea, no hematemesis, no hematochezia, no melena, no nausea, no vomiting - Genitourinary Genitourinary ROS male: other (Patient has esteves cath with with sediment) - Musculoskeletal Musculoskeletal ROS IM: no numbness, no tingling - Integumentary Integumentary IM: no rash, no unusual bruising - Neurological Neurological ROS: no confusion, no convulsions, no focal weakness, no numbness, no tingling, no tremor(s) - Hematologic/Lymphatic Hematologic/Lymphatic: no easy bruising - Constitutional Vitals: Temp Pulse Resp BP Pulse Ox 97.4 F L 81 16 131/90 99 05/11/18 11:55 05/11/18 14:33 05/11/18 15:00 05/11/18 15:00 05/11/18 14:33 General appearance: Present: A&O X 3, answers questions appropriately - Head Head exam: Present: atraumatic, normocephalic - Eye Eye exam: Present: PERRL, conjuntiva pink, sclera anicteric Pupils: Present: PERRL - Neck Neck exam general surgery: Present: supple, trachea midline. Absent: lymphadenopathy - Respiratory Respiratory exam: Present: CTAB. Absent: accessory muscle use, rales, rhonchi, wheezes - Cardiovascular Cardiovascular exam: Present: RRR, +S1, +S2. Absent: diastolic murmur, gallop, rubs, systolic murmur - GI/Abdominal GI/Abdominal exam: Present: normal bowel sounds, soft, no peritoneal signs. Absent: distended, tenderness - Extremities Exam Extremities exam: Present: warm, radial pulses palpable and symmetrical. Absent : calf tenderness, cyanotic, pedal edema - Neurological Exam Neurological exam: Present: CN II-XII intact, oriented X3, no focal deficits. Absent: pronater drift, facial droop, speech deficit - Skin Skin exam: Present: dry, intact Internal Med - H&P Results - Labs CBC & Chem 7: 05/11/18 12:11 05/11/18 12:11 - Assessment and plan (1) UTI (urinary tract infection) Current Visit: Yes Status: Acute Assessment and plan: Confirmed 4th UTI since 03/08/2018. Patient has chronic Esteves catheter Continue Levaquin and vancomycin daily IV fluid x 1 bag, 3 liters given in the ED Urine culture Qualifiers: Urinary tract infection type: acute cystitis Hematuria presence: without hematuria Qualified Code(s): N30.00 - Acute cystitis without hematuria (2) SIRS (systemic inflammatory response syndrome) Current Visit: Yes Status: Suspected Assessment and plan: Patient having subjective fevers and shortness of breath at home. Lactate 2.6, will repeat every 4 hours until under 2 Likely related to urinary tract infection Monitor daily labs IV fluids IV antibiotics-Levaquin and vancomycin (3) Diabetes mellitus Current Visit: Yes Status: Chronic Assessment and plan: Uncontrolled Goal is under 200 Before meals and at bedtime blood sugars with moderate Humalog insulin coverage Monitor daily labs Qualifiers: Diabetes mellitus type: type 2 Diabetes mellitus local intermodal truck driver insulin use: with snf use Diabetes mellitus complication status: without complication Qualified Code(s): E11.9 - Type 2 diabetes mellitus without complications; Z79.4 - emt intermediate (current) use of insulin (4) Hypertension Current Visit: Yes Status: Chronic Assessment and plan: BP uncontrolled Goal is less than 140/80 Continue all antihypertensive medications-clonidine Qualifiers: Hypertension type: essential hypertension Qualified Code(s): I10 - Essential (primary) hypertension (5) Seizure disorder Current Visit: Yes Status: Chronic Assessment and plan: Seizure precautions Continue home medications-Depakote sprinkles - Time Spent With Patient Total time spent is greater than 50% in coordination of care (as documented) at patient's floor/unit and/or counseling patient: less than 15 minutes
[2018-05-11] MEDS ORDERED: 0.9 % Sodium Chloride 1,000 ML IVC SCH (16:00)
[2018-05-11] MEDS: Insulin LISPRO 300 UNITS/3 ML VIAL SQ SCH (16:56)
[2018-05-11] MEDS: *HR* Heparin 5,000 UNIT/ML VIAL SQ SCH (16:56)
--- NOTE | 2018-05-11 19:09 | Sepsis Event Note ---
Sepsis Reassessment Note - Evaluation Sepsis Screen: No Definite Risk Current Stage of Sepsis: sepsis Possible Source of Sepsis: genitourinary - Focused Exam Date of Encounter: 05/11/18 Time of Encounter: 19:06 Vital Signs: Vital Signs Temp Pulse Resp BP Pulse Ox 05/11/18 16:07 97.6 F 87 18 149/87 97 05/11/18 15:00 16 131/90 Respiratory Exam: Present: CTA bilaterally. Absent: wheezes Cardiovascular Exam: Present: RRR Capillary Refill: < 2 seconds Peripheral Pulse Strength: 2+ slightly diminished Peripheral Pulse Location: Radial Skin Exam: normal turgor - Reassessment Comments Comments: Lactic elevated up to 3.4, increased IVF and will recheck in 4 hours
[2018-05-11] MEDS: clonazePAM 1 MG TABLET PO SCH (20:59)
[2018-05-11] MEDS: Divalproex Sodium 125 MG CAPSULE PO SCH (20:59)
[2018-05-11] MEDS: cloNIDine HCl 0.1 MG TABLET PO SCH (20:59)
[2018-05-11] MEDS: Lithium Carbonate 300 MG CAPSULE PO SCH (21:00)
[2018-05-11] MEDS: Insulin DETEMIR 100 UNIT/ML X5UNITS SQ SCH (21:00)
[2018-05-11] MEDS: LOXAPINE SUCCINATE 50 MG PO SCH (21:00)
[2018-05-12 00:39] LABS: Basophils % 0.3 %; Eosinophils # 0.2 K/mcL (0.0-0.6); Eosinophils % 3.5 %; Hematocrit 30.9 % (37.5-50.1); Immature Granulocytes % 0.5 % (0-4); Lymphocytes # 2.3 K/mcL (0.6-4.6); Lymphocytes % 35.4 %; Mean Corpuscular HGB Conc 32.4 g/dL (31.6-35.5); Mean Corpuscular Hemoglobin 33.9 pg (28.0-33.3); Mean Corpuscular Volume 104.7 fL (83.0-100.0); Mean Platelet Volume 9.3 fL (9.4-12.4); Monocytes # 0.4 K/mcL (0.0-1.3); Monocytes % 5.8 %; Neutrophils # 3.6 K/mcL (1.6-8.9); Platelet Count 193 K/mcL (140-400); Red Blood Count 2.95 M/mcL (4.19-5.50); Red Cell Distribution Width 14.4 % (11.5-14.5); Segmented Neutrophils % 54.5 %
[2018-05-12 00:47] LABS: INR 1.6; Prothrombin Time 17.7 Seconds (9.4-12.1)
[2018-05-12 01:09] LABS: BUN/Creatinine Ratio 12 (6-26); Blood Urea Nitrogen 7 mg/dL (6-20); Calcium 8.6 mg/dL (8.6-10.3); Carbon Dioxide 18 mEq/L (23-29); Chloride 120 mEq/L (98-107); Glucose 85 mg/dL (70-105); Osmolality,Calculated 289 (280-300); Potassium 4.4 mEq/L (3.5-5.1); Sodium 141 mEq/L (136-145); eGFR For Non-African Americans > 60 (> 60)
[2018-05-12] MEDS: 0.9 % Sodium Chloride 1,000 ML IVC SCH ×3 (04:00→16:32)
[2018-05-12] MEDS: *HR* Heparin 5,000 UNIT/ML VIAL SQ SCH ×2 (05:35→17:27)
[2018-05-12] MEDS: Levothyroxine 25 MCG TABLET PO SCH (05:35)
[2018-05-12] MEDS: Insulin LISPRO 300 UNITS/3 ML VIAL SQ SCH ×3 (07:42→16:33)
[2018-05-12] MEDS: clonazePAM 1 MG TABLET PO SCH ×3 (07:43→21:14)
[2018-05-12] MEDS: Venlafaxine XR (24 HR) 75 MG CAP.ER.24H PO SCH (07:43)
[2018-05-12] MEDS: Levofloxacin 750 MG/150 ML 750 MG/150 ML BAG IVPB SCH (07:43)
[2018-05-12] MEDS: Divalproex Sodium 125 MG CAPSULE PO SCH ×2 (07:43→21:14)
[2018-05-12] MEDS: Lithium Carbonate 300 MG CAPSULE PO SCH ×3 (07:44→21:15)
[2018-05-12] MEDS: LOXAPINE SUCCINATE 50 MG PO SCH (07:44)
[2018-05-12] MEDS: Fenofibrate 54 MG TABLET PO SCH (07:44)
[2018-05-12] MEDS ORDERED: (Trospium Chloride [Trospium Chloride] 20 MG) PO SCH (09:00)
[2018-05-12] MEDS ORDERED: Polyethylene Glycol 3350 255 GM POWDER PO SCH (09:00)
--- NOTE | 2018-05-12 13:30 | Internal Med Progress Note ---
Hospitalist Progress Note - Encounter Date of Encounter: 05/12/18 Time of Encounter: 10:15 - Subjective Interval History: Patient with chronic indwelling Nam catheter hospitalized here with recurrent urinary tract infection. He feels much better today. Denies any pain or fever. No dysuria. His urine appears to be clearing. No fever or chills reported overnight. - Exam Vitals: Temp Pulse Resp BP Pulse Ox 98.0 F 67 16 119/80 97 05/12/18 10:04 05/12/18 10:04 05/12/18 10:04 05/12/18 10:04 05/12/18 10:04 Exam: General: Patient is alert, no acute distress, oriented x 3 Head: atraumatic, normocephalic, Eye: normal appearance, PERRL, no scleral icterus, no conjunctival injection Neck: normal inspection, trachea midline, full ROM, no carotid bruits Chest: normal inspection, symmetric chest rise Respiratory: Good respiratory effort. Normal breath sounds. No wheezing or crackles. Cardiovascular: Regular rate and rhythm. s1 and s2 No clicks, rubs, gallops, or murmurs. No pedal edema Abdomen: Abdomen is soft, nontender. Bowel sounds are present Musculoskeletal: No pedal edema. Decubitus ulcer stage 2 on the heel of the right foot. Currently bandaged Skin: Small sores noted in his gluteal cleft region. No ulcers. Neuro: Alert oriented x 3 , normal cranial nerves. Psych: Patient's affect is normal - Assessment and Plan (1) UTI (urinary tract infection) Current Visit: Yes Status: Acute Assessment and Plan: with possible MRSA UTI. Patient was previously hospitalized here his urine culture was positive for MRSA. However given that the patient has chronic indwelling Nam catheter, this was believed to be colonization. His urine cultures currently are positive for gram-positive cocci and gram-negative rods. Patient is on vancomycin and Levaquin. We will continue these antibiotics while we await culture results. Recommend changing Nam catheter prior to discharge. (2) Sepsis Current Visit: Yes Status: Ruled-out Assessment and Plan: No signs of sepsis (3) Diabetes mellitus Current Visit: Yes Status: Chronic Assessment and Plan: Well-controlled. (4) Seizure disorder Current Visit: Yes Status: Chronic Assessment and Plan: Continue lithium, Depakote. - Time Spent with Patient Total time spent is greater than 50% in coordination of care (as documented) at patient's floor/unit and/or counseling patient: Internal Medicine: Result - Labs CBC & Chem 7: 05/12/18 00:27 05/12/18 00:27 Labs: Short CBC 05/12/18 Range/Units 00:27 WBC 6.6 (4.3-11.1) K/mcL Hgb 10.0 L (12.9-16.9) g/dL Hct 30.9 L (37.5-50.1) % Plt Count 193 (140-400) K/mcL Neutrophils # 3.6 (1.6-8.9) K/mcL BMP 05/12/18 00:27 Sodium 141 D Potassium 4.4 Chloride 120 H Carbon Dioxide 18 L BUN 7 Creatinine 0.57 L Glucose 85 Calcium 8.6 - ABG Interpretation ABG results: ABG ABG pH 7.42 pH Units (7.32-7.45) 05/11/18 13:38 ABG pCO2 24 mmHg (35-45) L 05/11/18 13:38 ABG pO2 97 mmHg (85-104) 05/11/18 13:38 ABG O2 Saturation 98 % (95-98) 05/11/18 13:38 PT/INR, D-dimer PT 17.7 Seconds (9.4-12.1) H 05/12/18 00:27 Consult Discharge Plan - Plan Referrals: Stanton Lock MD [Primary Care Provider] - (1) UTI (urinary tract infection) Qualifiers: Urinary tract infection type: acute cystitis Hematuria presence: without hematuria Qualified Code(s): N30.00 - Acute cystitis without hematuria (2) Sepsis Qualifiers: Sepsis type: sepsis due to unspecified organism Qualified Code(s): A41.9 - Sepsis, unspecified organism (3) Diabetes mellitus Qualifiers: Diabetes mellitus type: type 2 Diabetes mellitus snf insulin use: with snf use Diabetes mellitus complication status: without complication Qualified Code(s): E11.9 - Type 2 diabetes mellitus without complications; Z79.4 - [facility] (current) use of insulin
[2018-05-12] MEDS ORDERED: Vancomycin 0 MG in 0.9 % Sodium Chloride 250 ML IVPB SCH (16:00)
[2018-05-12] MEDS ORDERED: Silvasorb 44.4 ML TUBE TP SCH (16:00)
[2018-05-12] MEDS ORDERED: LOXAPINE SUCCINATE 50 MG PO SCH (21:00)
[2018-05-12] MEDS: cloNIDine HCl 0.1 MG TABLET PO SCH (21:14)
[2018-05-12] MEDS: Insulin DETEMIR 100 UNIT/ML X5UNITS SQ SCH (21:15)
[2018-05-13] MEDS: Levothyroxine 25 MCG TABLET PO SCH (05:22)
[2018-05-13] MEDS: *HR* Heparin 5,000 UNIT/ML VIAL SQ SCH (05:22)
[2018-05-13] MEDS: clonazePAM 1 MG TABLET PO SCH (07:55)
[2018-05-13] MEDS: Venlafaxine XR (24 HR) 75 MG CAP.ER.24H PO SCH (07:55)
[2018-05-13] MEDS: Levofloxacin 750 MG/150 ML 750 MG/150 ML BAG IVPB SCH (07:55)
[2018-05-13] MEDS: Divalproex Sodium 125 MG CAPSULE PO SCH (07:55)
[2018-05-13] MEDS: Lithium Carbonate 300 MG CAPSULE PO SCH (07:55)
[2018-05-13] MEDS: Insulin LISPRO 300 UNITS/3 ML VIAL SQ SCH (07:55)
[2018-05-13] MEDS: Fenofibrate 54 MG TABLET PO SCH (07:55)
--- NOTE | 2018-05-13 10:42 | Discharge Summary ---
- NOTES TO OUTPATIENT PROVIDER Notes to Outpatient Provider: Patient was admitted for MRSA and Acinetobacter urinary tract infection. Discharged home on Augmentin and doxycycline for 10 more days to complete 14 days of therapy for complicated urinary tract infection. Other chronic medical conditions are stable home medications continued. Orders not resulted at time of discharge: Pending orders 05/14/18 04:00 Chem 7 [Basic Metabolic Panel] AM 0400 Complete Blood Count [HEME] AM 0400 Date of Encounter: 05/13/18 Time of Encounter: 10:42 - Discharge Diagnosis (1) Sepsis Priority: Primary Status: Ruled-out Qualifiers: Sepsis type: sepsis due to unspecified organism Qualified Code(s): A41.9 - Sepsis, unspecified organism (2) Diabetes mellitus Priority: Secondary Status: Chronic Qualifiers: Diabetes mellitus type: type 2 Diabetes mellitus group home insulin use: with bed bug exterminator use Diabetes mellitus complication status: without complication Qualified Code(s): E11.9 - Type 2 diabetes mellitus without complications; Z79.4 - prison (current) use of insulin (3) Seizure disorder Priority: Secondary Status: Chronic (4) UTI (urinary tract infection) Priority: Primary Status: Acute Qualifiers: Urinary tract infection type: acute cystitis Hematuria presence: without hematuria Qualified Code(s): N30.00 - Acute cystitis without hematuria (5) Schizophrenia Priority: Secondary Status: Chronic Qualifiers: Schizophrenia type: unspecified Qualified Code(s): F20.9 - Schizophrenia, unspecified Hospital course: Mr. Yang is a 47 year old male with history of recurrent UTI, schizophrenia, diabetes DM, HTN, and seizure disorder. The patient has history of cognitive deficits and lives in his home with the assistance of a ROCK SPLITTER. ROCK SPLITTER supplied some medical and social information at time of presentation., Home health a reported subjective fevers and shortness of breath. Apparently patient's Esteves catheter tubing began to have white sediment in the past 2 days. Patient verbalizes no abdominal pain or discomfort and no complaints with Esteves catheter. Patient with recent UTIs on 04/18/2018 which cultured MRSA, 2017 culture Klebsiella pneumoniae and 03/08/2018 with Enterococcus faecalis. UA received in the ED which showed moderate blood, positive for nitrites, large leukocyte esterase, WBCs TNTC, and RBCs 30-50. Patient was admitted to the hospital and started on cefepime, Levaquin, and vancomycin due to last urine culture of MRSA. He continued to receive Levaquin and Vanco for 3 days He was not septic on arrival, he did have lactic acidosis which resolved with IVF hydration He is seen and examined at the bedside this morning in stable clinical condition. Urine culture growing Acinetobacter pulmonary complex and MRSA. Sensitive to ampicillin sulbactam, cefepime, ciprofloxacin, gentamicin, imipenem, levofloxacin, Zosyn, tobramycin and Bactrim, gentamicin, vancomycin respectively. Patient is discharged to home health care with Augmentin twice a day and doxycycline twice a day for 10 more days to complete 14 days of therapy for complicated urinary tract infection. Esteves catheter was changed and home health nurse educated on need to change Esteves catheter at least once a month. Follow-up with primary care physician. Other chronic medical conditions remained stable Plan of care discussed with patient and home health aide Discharge discussed with: patient, nurse, social work - Time Spent with Patient Total time spent providing and/or coordinating discharge services: Greater than 30 minutes - Discharge Medications Prescriptions: Amoxicillin/Clavulanate [Augmentin] 875 mg PO BIDWM #20 tablet Doxycycline 100 mg PO BID #20 capsule Home Medications: Desvenlafaxine Succinate [Pristiq] 50 mg PO DAILY 03/30/18 [History] Fenofibrate Nanocrystallized [Tricor] 145 mg PO DAILY 03/30/18 [History] Insulin DETEMIR [Levemir] 20 units SQ HS 03/30/18 [History] Levothyroxine [Synthroid] 25 mcg PO DAILY 03/30/18 [History] [place] Carbonate 300 mg PO TID 03/30/18 [History] Loxapine Succinate [Loxapine] 50 mg PO BID 03/30/18 [History] Medroxyprogesterone Acetate [Depo-Provera] 201 mg IM Q4W 03/30/18 [History] Metformin HCl [Glucophage] 1,000 mg PO BID 03/30/18 [History] Sertraline [Zoloft] 100 mg PO DAILY 03/30/18 [History] Trospium Chloride 20 mg PO DAILY 03/30/18 [History] cloNIDine HCl [CloNIDine HCl] 0.1 mg PO HS 03/30/18 [History] clonazePAM [Klonopin] 1 mg PO TID 03/30/18 [History] Divalproex Sodium [Depakote Sprinkle] 250 mg PO BID 05/11/18 [History] Insulin LISPRO [Humalog Kwikpen U-100] 0 unit SQ TID PRN 05/11/18 [History] Polyethylene Glycol 3350 [MiraLAX Powder Bulk 17.9 Oz] 1 scoop PO DAILY [History] Amoxicillin/Clavulanate [Augmentin] 875 mg PO BIDWM #20 tablet 05/13/18 [Rx] Doxycycline 100 mg PO BID #20 capsule 05/13/18 [Rx] Silvasorb 1 appl TP DAILY tube 05/13/18 [Rx] Allergies/Adverse Reactions: 3 Allergy/AdvReac Type Severity Reaction Status Date / Time No Known Allergies Allergy Verified 05/11/18 11:49 Date of admission: 05/11/18 14:34 Primary care physician: Stanton Lock MD Consults: 05/11/18 15:09 Consult to Wound Care [CONS] Stat Reason for Consult: Left heel open wound. Time Notified: 15:10 Call Completed: Yes Discharging clinician: Saturnino Pro Anticipated date of discharge: 05/13/18 - Constitutional Vitals: Temp Pulse Resp BP Pulse Ox 98.7 F 69 18 112/77 100 05/13/18 07:09 05/13/18 07:09 05/13/18 07:09 05/13/18 07:09 05/13/18 07:09 General appearance: Present: A&O X 3, answers questions appropriately Exam: Gen.: Vitals noted. No acute distress. AAOx3 HEENT: PERRL/EOMI, oropharynx clear, Normocephalic, atraumatic, MMM Cardiac: RRR, no murmur, +S1/S2 Pulmonary: CTA bilaterally, no wheezes, rales or rhonchi, equal chest expansion Abdomen: soft, minimally tender to palpation in lower abdomen, BS noted, no guarding, no rebound. MSK: ROM intact, no joint swelling noted. Tender to palpation of the quadriceps bilaterally, moderately tender to bilateral flank palpation. Extremities: no BLE edema, nontender calf, no cyanosis or clubbing Neuro: A&Ox3, moves all extremities, no focal deficits Psych: Appropriate mood and behavior : esteves with clear urine - Patient Status Disposition: Home Health Service Condition: Fair Functional capacity at discharge: uses cane/walker Overall status at discharge: patient is progressing back to baseline - Discharge Instructions Follow Up With: Stanton Lock MD [Primary Care Provider] - - Diet and Activity Activity: resume usual activities as tolerated Diet: diabetic diet
--- NOTE | 2018-05-13 10:42 | Physician Discharge Referral ---
Home Health/Hosp Referral Info Transfer to: Home Health Attending Provider: Saturnino Pro Provider in Charge Post Discharge: PCP - Diagnosis (1) Sepsis Priority: Primary Status: Ruled-out (2) Diabetes mellitus Priority: Secondary Status: Chronic (3) Seizure disorder Priority: Secondary Status: Chronic (4) UTI (urinary tract infection) Priority: Primary Status: Acute - Respiratory Orders Smoking Cessation: Smoking cessation has been advised. For more information, call the [place] Tobacco Quit Line at 5-566-DUNA-NOW. - Dressing/Wound Care Site: Wound Care: blister left medial heel - cleanse daily with dermal wound connie cleaner (HashplexklLemonCrate) - apply Silvasorb Gel to the wound - cover with an Allevyn Multisite Foam Dressing - change daily and prn if loose or soiled - Diet/Nutrition Diet/Nutrition Orders: Cardiac, No Concentrated Sweets - Activity Activity Orders: Up ad hali - Services Needed Following services are medically necessary services: Nursing, Home Health Aide, Occupational Therapy - Transfer Medications Prescriptions: Amoxicillin/Clavulanate [Augmentin] 875 mg PO BIDWM #20 tablet Doxycycline 100 mg PO BID #20 capsule Home Medications: Desvenlafaxine Succinate [Pristiq] 50 mg PO DAILY 03/30/18 [History] Fenofibrate Nanocrystallized [Tricor] 145 mg PO DAILY 03/30/18 [History] Insulin DETEMIR [Levemir] 20 units SQ HS 03/30/18 [History] Levothyroxine [Synthroid] 25 mcg PO DAILY 03/30/18 [History] [place] Carbonate 300 mg PO TID 03/30/18 [History] Loxapine Succinate [Loxapine] 50 mg PO BID 03/30/18 [History] Medroxyprogesterone Acetate [Depo-Provera] 201 mg IM Q4W 03/30/18 [History] Metformin HCl [Glucophage] 1,000 mg PO BID 03/30/18 [History] Sertraline [Zoloft] 100 mg PO DAILY 03/30/18 [History] Trospium Chloride 20 mg PO DAILY 03/30/18 [History] cloNIDine HCl [CloNIDine HCl] 0.1 mg PO HS 03/30/18 [History] clonazePAM [Klonopin] 1 mg PO TID 03/30/18 [History] Divalproex Sodium [Depakote Sprinkle] 250 mg PO BID 05/11/18 [History] Insulin LISPRO [Humalog Kwikpen U-100] 0 unit SQ TID PRN 05/11/18 [History] Polyethylene Glycol 3350 [MiraLAX Powder Bulk 17.9 Oz] 1 scoop PO DAILY [History] Amoxicillin/Clavulanate [Augmentin] 875 mg PO BIDWM #20 tablet 05/13/18 [Rx] Doxycycline 100 mg PO BID #20 capsule 05/13/18 [Rx] Silvasorb 1 appl TP DAILY tube 05/13/18 [Rx] Allergies/Adverse Reactions: 3 Allergy/AdvReac Type Severity Reaction Status Date / Time No Known Allergies Allergy Verified 05/11/18 11:49 Certification: Further, I certify that my clinical findings support that this patient is homebound (i.e. absences from home require considerable and taxing effort and are for medical reasons or sikhism services or infrequently or short duration when for other reasons) because: Homebound Reason: Patient requires assistance of a person or device to safely leave home Attestation: My signature below is to certify that this patient is under my care and that I, or nurse practitioner, or a physician's blacksmith assistant working with me, has a face-to -face encounter with this patient.
[2018-05-13 11:48] VITALS: BP 113/78
[2018-05-13] MEDS ORDERED: Aminoglycoside Consult 1 EACH MC ONE (14:49)
[2018-05-13] MEDS ORDERED: Doxycycline 100 MG CAPSULE PO SCH (21:00)
== END 2018-05-13 14:50 | disposition home health service (06) | DRG 690 ==
LOC: EMEROOARM 11:41 → 3ANU 11:41 → SUATTDRO 14:34 → 3ANU 15:09
PROVIDERS: ADMIT Internal Medicine; ATTEND Internal Medicine